=== PATIENT | male | born 1940 | race Caucasian/White ===

== ENCOUNTER 2017-11-04 07:40 | Day surgery (SDC) | payer MEDICARE, OTHER ==
[~2017-11-04] VITALS: Ht 182.9 cm; Wt 104.3 kg
[~2017-11-04 07:40] MED LIST: Aspir 8181 MG PO; DUTA.5 PO; Percocet 5-3251 EACH PO; SIMV5 PO; TAMS.4ER PO
[2017-11-04] MEDS ORDERED: Prilosec Otc20 MG (08:15)
[2017-11-04] MEDS ORDERED: TADA10TA (08:16)
== END 2017-11-04 10:15 | disposition home or self-care (01) ==
LOC: ORSCSDS 07:40
PROVIDERS: Internal Medicine Gastroenterology
PROC: 0DBM8ZX Excision of Descending Colon, Via Natural or Artificial Opening Endoscopic, Diagnostic (ICD-10-PCS; principal; 2017-11-04 09:00)
PROC: 0DBH8ZX Excision of Cecum, Via Natural or Artificial Opening Endoscopic, Diagnostic (ICD-10-PCS; principal; 2017-11-04 09:00)
DX: Z12.11 Encounter for screening for malignant neoplasm of colon (principal); D12.4 Benign neoplasm of descending colon; D12.0 Benign neoplasm of cecum; K57.30 Diverticulosis of large intestine without perforation or abscess without bleeding; K21.9 Gastro-esophageal reflux disease without esophagitis; Z79.82 Long term (current) use of aspirin; Z79.899 Other long term (current) drug therapy
CPT/HCPCS: 88305; J0330; J1980; J2405; J7120

== ENCOUNTER 2020-11-23 08:44 | Day surgery (SDC) | payer MEDICARE, OTHER ==
[~2020-11-23] VITALS: Ht 185.4 cm; Wt 107.7 kg
[~2020-11-23 08:44] MED LIST changes: +ASPI81CH; +Aspirin EC81 MG PO; +Cialis20 MG PO; +ESOM20 PO; +Fluocinonide-E15 GM; +MULTIPLE VITAM1 EACH PO; +Prilosec Otc20 MG; +ROSU5; +ROSU5 PO; +TADA10TA; +TRANSDERM-SCOP1 EAC4; +VALIUM PO; +VITAMIN B125000 MC1 PO
== END 2020-11-23 10:40 | disposition home or self-care (01) ==
LOC: ORSCSDS 08:44
PROVIDERS: Ophthalmology
PROC: 08RJ3JZ Replacement of Right Lens with Synthetic Substitute, Percutaneous Approach (ICD-10-PCS; principal; 2020-11-23 10:00)
DX: H25.11 Age-related nuclear cataract, right eye (principal); H21.81 Floppy iris syndrome; E78.00 Pure hypercholesterolemia, unspecified; Z79.899 Other long term (current) drug therapy
CPT/HCPCS: A9270; J2001; J2250; J3010; J3301; J7040; V2632

== ENCOUNTER 2021-07-26 08:17 | Day surgery (SDC) | payer MEDICARE, OTHER ==
[~2021-07-26] VITALS: Ht 185.4 cm; Wt 115.6 kg
[2021-07-26] MEDS ORDERED: LATA.005SO BOTHEYES (08:36)
[2021-07-26] MEDS ORDERED: ESOM20 PO (08:37)
[2021-07-26] MEDS ORDERED: NAPR220 PO (08:40)
[2021-07-26] MEDS ORDERED: IBUP200 PO (08:40)
--- NOTE | 2021-07-26 08:51 | NUR ---
07/26/21 0851 Rosalba Burnett TETRACAINE DROP IN AT 0838 PLEDGET IN AT 0841
== END 2021-07-26 10:27 | disposition home or self-care (01) ==
LOC: ORSCSDS 08:17
PROVIDERS: Ophthalmology
PROC: 08RK3JZ Replacement of Left Lens with Synthetic Substitute, Percutaneous Approach (ICD-10-PCS; principal; 2021-07-26 09:30)
DX: H25.12 Age-related nuclear cataract, left eye (principal); H21.81 Floppy iris syndrome; E78.5 Hyperlipidemia, unspecified; E66.9 Obesity, unspecified; Z68.33 Body mass index [BMI] 33.0-33.9, adult; Z79.899 Other long term (current) drug therapy
CPT/HCPCS: J2001; J2250; J3010; J3301; J7040; V2632